=== PATIENT | male | born 1960 | race Caucasian/White ===

== ENCOUNTER 2017-03-14 14:04 | Inpatient (IN) | payer MEDICAID ==
[~2017-03-14] VITALS: Ht 182.8 cm; Wt 88.8 kg
--- NOTE | ~2017-03-14 | CON ---
[place], [place] REPORT OF CONSULTATION NAME: KEITH CONTRERAS UNIT #: [id number] [facility]: [facility] DOCTOR: TIFFANY MOORE MD,SVETLANA BIRTHDATE: [birth year] DOS: 03/15/2017 REASON FOR CONSULTATION: To assess the patient's abnormal chest x-ray. The patient with history of lung cancer, possibly pneumonia and others. HISTORY OF PRESENT ILLNESS: This is a 56-year-old white male, unknown to me. The patient has been living in [place] per the sister and one of the brother of the patient who gave the history for this patient. They described that the patient has been noted with progressive change in mental status with increased confusional status. He has been noted with significant weakness and fatigue as well. The patient had been diagnosed with cancer of the lung which has been described metastatic to the liver, bone, and brain. The cancer was diagnosed and established in January 2017. The patient underwent radiation treatment of the brain, and also started chemotherapy. He has been given chemotherapy, few other treatment but later on the patient has developed significant side effects including acute kidney injury. Chemotherapy for the patient has been discontinued. He has been brought back to [place] by the patient's brother and sister to live with them. The patient has been noted with significant weakness and fatigue. Unable to give me any history. All the history for the patient has been essentially obtained from the review of the current documentation and medical records. The review of systems could not be completed since the patient is currently noted to be drowsy and sleepy with the changes in mental status still persistent. He was noted to have secondary tachycardia as the patient was picked up by the EMS and brought to the hospital. The patient has not reported any symptoms of unconsciousness or any seizure activity. PAST MEDICAL HISTORY: 1. Reported as history of extensive metastatic cancer of the lung to different parts of the body. 2. 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 3. Past history of tobacco use. SOCIAL HISTORY: The patient has been noted as not , does not have any children. He has been noted tobacco use up to 1.5 pack of cigarettes per day previously. PAST SURGICAL HISTORY: 1. Noted as a biopsy of the lung for this patient. A diagnosis for lung cancer was established per family members. 2. Resection of the melanoma from the face on the right side. 3. Insertion of a MediPort. FAMILY HISTORY: The patient has 3 brothers. Other history was noted noncontributory to his illness. HOME MEDICATIONS: Noted as none used by the patient on a regular basis. DRUG ALLERGIES: No known drug allergies. PHYSICAL EXAMINATION: [place], [place] REPORT OF CONSULTATION NAME: KEITH CONTRERAS UNIT #: [id number] [facility]: [facility] DOCTOR: TIFFANY MOORE MD,SVETLANA BIRTHDATE: [birth year] GENERAL: A 56-year-old male who has been noted currently drowsy, arousable, and opens his eyes on vocal commands. VITAL SIGNS: Respiratory rate noted obviously with the respiratory rate between 6 to 8 breaths per minute at this time. His height was recorded by the nursing staff as height of 6 feet, weight of 88 kg, BMI 26.5. Temperature noted as normal with the rectal temperature minimally elevated at 100.8. Respiratory recorded as 7 to 27. Heart rate of 170, currently noted 111 beats per minute, appeared to be in normal sinus rhythm with tachycardia. The pulse oxygen saturation of the patient was recorded on 2 L nasal cannula at 92% saturation. HEENT: Examination shows head was atraumatic. Eyes nonicterus. Pupils were noted as pinpointed. CARDIOVASCULAR SYSTEM: S1, S2 audible. LUNGS: Examination of the lungs was noted without any wheezing or crackles on the right side. Decreased breath sounds noted in the left chest on auscultation. ABDOMEN: Soft, nontender. EXTREMITIES: Does not show any obvious edema, clubbing, or cyanosis. CENTRAL NERVOUS SYSTEM: Remaining central nervous system could not be examined because of lack of cooperation and current change in mental status. SKIN: Showed no lesions or rashes. MUSCULOSKELETAL: Does not show any acute deformities. LABORATORY DATA: Lactic acid noted 4.5 on admission, follow up 4.6 and then later on 2.3. Troponin was noted minimally elevated yesterday at 0.738. Urinalysis that was noted on admission noted as 3+ leukocyte esterase and nitrites positive. 2+ bacteria were also noted. CBC yesterday on admission was noted; WBC count 22.7, hemoglobin 10.1, hematocrit 32.1, platelet count 67,000. Troponin which was repeated this morning still noted mildly elevated at 0.45. Blood culture which were done for this patient shows gram-positive cocci in clusters and pairs in all of the 4 bottles from yesterday. CMP of 03/15/2017 was noted BUN 42, creatinine 1.89. Potassium 3.3. Total protein of 4.7, albumin 1.0. SGOT of 63. Alkaline phosphate 219. CMP of yesterday was noted; BUN 40, creatinine 1.80. Albumin was noted at 1.5, total bilirubin 1.2, AST of 54. Alkaline phosphatase 303. CBC of patient; this morning labs noted for WBC count 20.9, hemoglobin 7.5, hematocrit 25.4 with a platelet count of 46,000 with 88% segmented neutrophils. PT/PTT this morning noted INR 1.4. The PTT was noted as normal. The review of the radiology data; the chest x-ray that was done for this patient shows right lung hyperinflated. Yesterday, chest x-ray done, the MediPort was noted with aberrant return, cephalad to the internal jugular vein. There was evidence of large area of consolidation/atelectasis noted with volume loss in the left lower lobe. Increased haziness in the left side of the chest was noted most likely secondary to pleural fluid. Chest x-ray done this morning shows worsening of the previous finding, the patient more ____ of possible pleural fluid was suspected. The right lung was noted, findings unchanged. CT scan of the head for this patient was also done yesterday that was reported by the radiologist report with findings of focal decreased attenuation in the left frontal lobe with subcortical white matter. The finding for this patient was described to be indeterminant for his age, acute infarct cannot be excluded. MRI was suggested. [place], [place] REPORT OF CONSULTATION NAME: KEITH CONTRERAS UNIT #: [id number] [facility]: [facility] DOCTOR: TIFFANY MOORE MD,SVETLANA BIRTHDATE: [birth year] IMPRESSION: 1. The patient who has been currently admitted to the hospital noted with progressive change in mental status. The patient with history of known metastatic carcinoma of the lungs most likely adeno or small cell cancer at this time would be considered, but the exact type of cancer was unknown. 2. A very severe protein-calorie malnutrition. 3. Acute respiratory failure. 4. Bradyarrhythmia for this patient most likely medication induced or central in origin would be considered. This morning, the patient has been given morphine sulphate about a couple of hours ago for comfort. The pinpointed pupil of the patient was suggestive of possibly narcotic induced current bradyarrhythmia. 5. Patient with acute urinary tract infection with severe sepsis and lactic acidosis. 6. Acute kidney injury for patient related to acute urinary tract infection and sepsis would be considered with the organ failure. 7. Hypertension, tachycardia related to the acute sepsis. 8. Past history of chronic nicotine abuse. The patient is suspected COPD as well. 9. Volume loss most likely related to endobronchial lesion with atelectasis with associated pleural fluid, most likely malignancy would be considered. 9. Gram-positive cocci bacteremia with possibly infection of the MediPort would be considered as well. MediPort was also noted with aberrant return to the tip to the internal jugular vein in the right side. PLAN OF TREATMENT: The patient's family members have considered hospice at this time. The patient has been continued on broad-spectrum intravenous antibiotics. He should continue to avoid the use of the narcotic medication excessively to prevent the recurrent low respiratory rate and the low central drive. Comfort measures to be instituted for this patient as requested by the family members. The multiorgan system failure for the patient noted including the patient with anemia as well as thrombocytopenia to be closely monitored. Elevation of the troponin, a mild amount, of the patient may be related to the overall general sepsis and hypoxia. However, underlying coronary artery disease ____ significant cannot be completely excluded. All other plan of management to be continued. Pleural fluid does not require any intervention. No invasive procedure was planned because of the patient's current terminal prognosis. Thanks for allowing me to participate in the care of this patient. [place], [place] REPORT OF CONSULTATION NAME: KEITH CONTRERAS UNIT #: [id number] [facility]: [facility] DOCTOR: SVETLANA JUNG MD BIRTHDATE: [birth year] SVETLANA ALLEN MD CM:CONSTR:REPORT OF CONSULTATION [id number] 03/16/17 0313 interface
[2017-03-14 15:04] LABS: BILIRUBIN NEGATIVE (NEGATIVE); BLOOD 1+ (NEGATIVE); CLARITY CLOUDY (CLEAR); COLOR YELLOW (YELLOW); GLUCOSE NEGATIVE (NEGATIVE); KETONE NEGATIVE (NEGATIVE); LEUKO ESTERASE 3+ (NEGATIVE); NITRITE POSITIVE (NEGATIVE); PROTEIN 1+ (NEGATIVE)
[2017-03-14 15:12] LABS: BACTERIA 2+; WBC TNTC wbc/hpf (0-5)
[2017-03-14 15:13] LABS: URINE REFLEX COMMENT YES (NO)
[2017-03-14 15:14] LABS: HEMATOCRIT 32.1 % (42.0-52.0); HEMOGLOBIN 10.1 g/dl (14.0-18.0); MEAN CELL VOLUME 107.7 fl (80.0-94.0); MEAN CORPUSCULAR HGB 33.9 pg (27.0-31.0); MEAN CORPUSCULAR HGB CONC 31.5 g/dl (33.0-37.0); MEAN PLATELET VOLUME 12.8 fl (9.6-12.3); NUCLEATED RED BLOOD CELL 0.2 % (0.0-0.0); PLATELET COUNT AUTOMATED 67 10*3/uL (130-400); RED BLOOD COUNT 2.98 10*6/uL (4.50-5.90); RED CELL DISTRI WIDTH 16.8 % (0-14.5); WHITE BLOOD COUNT 22.7 10*3/uL (4.8-10.8)
[2017-03-14 15:43] LABS: INTERNATIONAL NORM RATIO 1.3 (2.0-3.5)
[2017-03-14 15:45] LABS: ALBUMIN 1.5 gm/dl (3.1-4.5); BILIRUBIN, TOTAL 1.2 mg/dl (0.2-1.0); MAGNESIUM 2.1 mg/dL (1.5-2.1); POTASSIUM 3.8 mmol/L (3.5-5.1); TOTAL PROTEIN 5.9 gm/dL (6.4-8.2)
[2017-03-14 15:52] LABS: HYPOCHROMIA SLIGHT; LYMPHOCYTE # 0.2 10*3/uL (1.3-4.4); METAMYELOCYTES 1 % (0-0); MONOCYTE # 0.5 10*3/uL (0.1-1.0); MYELOCYTES 1 % (0-0); NEUTROPHIL # 21.6 10*3/uL (2.3-7.9); NEUTROPHILS 95 % (47-73); PLATELET SUFFICIENCY LOW (NORMAL); POLYCHROMASIA SLIGHT; TOTAL CELLS COUNTED 100 #CELLS
[2017-03-14 15:54] LABS: TROPONIN I 0.588 ng/ml (<0.045); VACUOLATION OF NEUTROPHILS SLIGHT
[2017-03-14 17:01] VITALS: BP 148/102
[2017-03-14 17:11] LABS: LA>2 REFLEX 2 HR DRAW NOW
[2017-03-14 17:46] LABS: LA>2 RFLX FOLLOW UP AT 2 HRS 4.6 mmol/L (0.4-2.0)
[2017-03-14 18:00] VITALS: BP 105/65
[2017-03-14] MEDS ORDERED: KEPPRA500 MG PO (18:37)
[2017-03-14] MEDS ORDERED: XYZAL5 M1 PO (18:38)
[2017-03-14] MEDS ORDERED: PERCOCET 5-3251 EACH PO (18:40)
[2017-03-14] MEDS ORDERED: OXYCONTIN20 M1 PO (18:40)
[2017-03-14] MEDS ORDERED: ASPIRIN CHEWABL81 MG PO (18:41)
[2017-03-14] MEDS ORDERED: LIPITOR10 MG PO (18:41)
[2017-03-14] MEDS ORDERED: LISINOPRIL20 MG PO (18:42)
[2017-03-14] MEDS ORDERED: DECADRON4 MG PO (18:42)
[2017-03-14] MEDS ORDERED: TOPROL XL25 MG PO (18:44)
[2017-03-14] MEDS ORDERED: TRAMADOL HCL50 MG PO (18:44)
[2017-03-14] MEDS ORDERED: LEXAPRO10 MG PO (18:45)
[2017-03-14] MEDS ORDERED: NITROGLYCERIN0.4 MG SL (18:46)
[2017-03-14] MEDS ORDERED: PROCHLORPERAZIN10 MG PO (18:47)
[2017-03-14] MEDS ORDERED: PROVENTIL HFA6.7 GM INH (18:48)
[2017-03-14 19:41] LABS: LA>2 REFLEX 4 HR DRAW NOW
[2017-03-14 20:00] VITALS: BP 96/45
[2017-03-14 22:00] VITALS: BP 91/45
[2017-03-15] VITALS: BP 83/49
[2017-03-15 02:36] VITALS: BP 92/60
[2017-03-15 05:00] VITALS: BP 84/50
[2017-03-15 06:18] LABS: MEAN CORPUSCULAR HGB 33.5 pg (27.0-31.0); MEAN CORPUSCULAR HGB CONC 29.5 g/dl (33.0-37.0); MEAN PLATELET VOLUME 12.8 fl (9.6-12.3); NUCLEATED RED BLOOD CELL 0.1 % (0.0-0.0); RED BLOOD COUNT 2.24 10*6/uL (4.50-5.90); RED CELL DISTRI WIDTH 16.9 % (0-14.5); WHITE BLOOD COUNT 20.9 10*3/uL (4.8-10.8)
[2017-03-15 06:19] LABS: HEMATOCRIT 25.4 % (42.0-52.0); HEMOGLOBIN 7.5 g/dl (14.0-18.0); MEAN CELL VOLUME 113.4 fl (80.0-94.0); PLATELET COUNT AUTOMATED 46 10*3/uL (130-400)
[2017-03-15 06:38] LABS: MAGNESIUM 2.3 mg/dL (1.5-2.1); POTASSIUM 3.3 mmol/L (3.5-5.1)
[2017-03-15 06:48] LABS: BILIRUBIN, TOTAL 0.9 mg/dl (0.2-1.0); THYROID STIM HORMONE (HS) 0.019 uIU/ml (0.358-4.75); TOTAL PROTEIN 4.7 gm/dL (6.4-8.2)
[2017-03-15 06:56] LABS: EOSINOPHIL # 0.2 10*3/uL (0-0.4); EOSINOPHILS 1 % (1-4); INTERNATIONAL NORM RATIO 1.4 (2.0-3.5); LYMPHOCYTE # 1.5 10*3/uL (1.3-4.4); METAMYELOCYTES 3 % (0-0); MONOCYTE # 0.2 10*3/uL (0.1-1.0); NEUTROPHIL # 18.4 10*3/uL (2.3-7.9); NEUTROPHILS 88 % (47-73); PLATELET SUFFICIENCY LOW (NORMAL); POLYCHROMASIA SLIGHT; PROTHROMBIN TIME 14.7 SECONDS (9.0-12.4); TOTAL CELLS COUNTED 100 #CELLS; TOXIC GRANULATION SLIGHT; VACUOLATION OF NEUTROPHILS SLIGHT
[2017-03-15 06:57] LABS: HYPOCHROMIA SLIGHT
[2017-03-15 08:00] VITALS: BP 91/59
[2017-03-15 12:00] VITALS: BP 80/69
[2017-03-15 16:00] VITALS: BP 91/60
[2017-03-15] MEDS ORDERED: FEVER REDUCER650 MG R (16:25)
[2017-03-15] MEDS ORDERED: TYLENOL325 M2 PO (16:25)
[2017-03-15] MEDS ORDERED: BISAC-EVAC10 MG R (16:25)
[2017-03-15] MEDS ORDERED: BISACODYL LAXATI5 MG PO (16:25)
[2017-03-15] MEDS ORDERED: ONDANSETRON4 MG/2 M3 IV (16:25)
[2017-03-15] MEDS ORDERED: MORPHINE SU2 MG/1 M2 IV (16:25)
== END 2017-03-15 16:50 | disposition hospice, home (50) | DRG 871 ==
LOC: ED 14:04 → EDHOLD 16:29 → ICCU 16:59
PROVIDERS: Emergency Medicine; Internal Medicine
DX: A41.9 Sepsis, unspecified organism (principal); J18.9 Pneumonia, unspecified organism; N17.0 Acute kidney failure with tubular necrosis; J96.01 Acute respiratory failure with hypoxia; G93.41 Metabolic encephalopathy; E43 Unspecified severe protein-calorie malnutrition; D69.6 Thrombocytopenia, unspecified; I24.8 Other forms of acute ischemic heart disease; C79.31 Secondary malignant neoplasm of brain; N39.0 Urinary tract infection, site not specified; C34.90 Malignant neoplasm of unspecified part of unspecified bronchus or lung; R65.20 Severe sepsis without septic shock; D53.1 Other megaloblastic anemias, not elsewhere classified; F17.210 Nicotine dependence, cigarettes, uncomplicated; E87.8 Other disorders of electrolyte and fluid balance, not elsewhere classified; E86.0 Dehydration; R74.0 Nonspecific elevation of levels of transaminase and lactic acid dehydrogenase [LDH]; G40.909 Epilepsy, unspecified, not intractable, without status epilepticus; Z79.899 Other long term (current) drug therapy; Z81.1 Family history of alcohol abuse and dependence; Z82.49 Family history of ischemic heart disease and other diseases of the circulatory system

== ENCOUNTER 2017-03-15 16:57 | Inpatient (IN) | payer OTHER, MEDICAID ==
[~2017-03-15] VITALS: Ht 182.8 cm; Wt 88.8 kg
[~2017-03-15 16:57] MED LIST: ASPIRIN CHEWABL81 MG PO; BISAC-EVAC10 MG R; BISACODYL LAXATI5 MG PO; DECADRON4 MG PO; FEVER REDUCER650 MG R; KEPPRA500 MG PO; LEXAPRO10 MG PO; LIPITOR10 MG PO; LISINOPRIL20 MG PO; MORPHINE SU2 MG/1 M2 IV; NITROGLYCERIN0.4 MG SL; ONDANSETRON4 MG/2 M3 IV; OXYCONTIN20 M1 PO; PERCOCET 5-3251 EACH PO; PROCHLORPERAZIN10 MG PO; PROVENTIL HFA6.7 GM INH; TOPROL XL25 MG PO; TRAMADOL HCL50 MG PO; TYLENOL325 M2 PO; XYZAL5 M1 PO
[2017-03-15 17:26] VITALS: BP 98/61
[2017-03-15 20:00] VITALS: BP 85/55
[2017-03-16] VITALS: BP 94/60
[2017-03-16 08:00] VITALS: BP 84/61
[2017-03-16 12:00] VITALS: BP 85/55
[2017-03-16 16:00] VITALS: BP 83/53
[2017-03-16 20:00] VITALS: BP 88/60
[2017-03-17] VITALS: BP 87/51
[2017-03-17 04:00] VITALS: BP 71/20
[2017-03-17 08:00] VITALS: BP 74/52
[2017-03-17 12:00] VITALS: BP 58/41
[2017-03-17 16:00] VITALS: BP 61/50
[2017-03-17 20:00] VITALS: BP 91/45
[2017-03-18] VITALS: BP 80/60
[2017-03-18 08:00] VITALS: BP 76/41
[2017-03-18 12:00] VITALS: BP 70/50
[2017-03-18 16:00] VITALS: BP 69/40
[2017-03-18 20:00] VITALS: BP 75/35
[2017-03-19] VITALS: BP 57/39
== END 2017-03-19 07:04 | disposition expired | DRG 871 ==
LOC: 5E 16:57
PROVIDERS: Internal Medicine
DX: A41.9 Sepsis, unspecified organism (principal); J18.9 Pneumonia, unspecified organism; N17.0 Acute kidney failure with tubular necrosis; J96.01 Acute respiratory failure with hypoxia; G93.41 Metabolic encephalopathy; E43 Unspecified severe protein-calorie malnutrition; I24.8 Other forms of acute ischemic heart disease; C79.31 Secondary malignant neoplasm of brain; D69.6 Thrombocytopenia, unspecified; N39.0 Urinary tract infection, site not specified; C34.90 Malignant neoplasm of unspecified part of unspecified bronchus or lung; R65.20 Severe sepsis without septic shock; D53.1 Other megaloblastic anemias, not elsewhere classified; R74.0 Nonspecific elevation of levels of transaminase and lactic acid dehydrogenase [LDH]; E87.8 Other disorders of electrolyte and fluid balance, not elsewhere classified; Z68.26 Body mass index [BMI] 26.0-26.9, adult